=== PATIENT | female | born 1975 | race Caucasian/White ===

== ENCOUNTER 2020-06-02 07:28 | Day surgery (SDC) | payer OTHER | END 2020-06-02 23:05 | disposition home or self-care (01) | LOC: MOI US 07:28 → MOI MAM 08:00 → MOI US 23:05 | DX: N60.11 Diffuse cystic mastopathy of right breast (principal) | CPT/HCPCS: 19083; 77065; 88305; A4648 ==

== ENCOUNTER 2021-07-04 11:11 | Day surgery (SDC) | payer OTHER ==
[~2021-07-04] VITALS: Ht 167.6 cm; Wt 81.7 kg
[2021-07-04] MEDS ORDERED: LEVSOD25 PO (11:38)
[2021-07-04] MEDS ORDERED: SERT100 PO (11:38)
[2021-07-04] MEDS ORDERED: PROG100 PO (11:39)
--- NOTE | 2021-07-04 12:31 | NUR ---
07/04/21 1231 Janki Delgado PATIENT INFORMED THAT CURRENT CASE IS RUNNING OVER EXPECTED TIME AND HER CASE WOULD BE DELAYED. PATIENT STATES UNDERSTANDING AND DENIES NEEDS AT PRESENT. CALL LIGHT IN REACH. WILL KEEP PATIENT UPDATED POSSIBLE.
--- NOTE | 2021-07-04 15:06 | NUR ---
07/04/21 1506 Myke Kuo LIDOCAINE 2% 1:100,000 DILUTED W/ NORMAL SALINE 1:1 PER ORDER TO MAKE LIDOCAINE 1% 1:200,000 [facility] BY [facility] CARNEY[facility]
== END 2021-07-04 16:45 | disposition home or self-care (01) ==
LOC: ORSCSDS 11:11
PROVIDERS: Otolaryngology
PROC: 09TL0ZZ Resection of Nasal Turbinate, Open Approach (ICD-10-PCS; principal; 2021-07-04 12:30)
PROC: 09BM0ZZ Excision of Nasal Septum, Open Approach (ICD-10-PCS; principal; 2021-07-04 12:30)
DX: J34.2 Deviated nasal septum (principal); J34.3 Hypertrophy of nasal turbinates; E03.9 Hypothyroidism, unspecified; F32.A Depression, unspecified; Z79.899 Other long term (current) drug therapy
CPT/HCPCS: 82947; J0171; J1100; J1885; J2250; J2405; J2704; J3010